=== PATIENT | female | born 1955 | race African-American/Black ===

== ENCOUNTER 2025-05-15 15:55 | Emergency (ER) | payer MEDICARE, BC ==
[~2025-05-15] VITALS: Ht 172.7 cm; Wt 87.0 kg
[2025-05-15 16:12] VITALS: TEMP 37
[2025-05-15] MEDS ORDERED: ACET-2708 MT (17:30)
[2025-05-15 18:01] VITALS: BP 135/82; PULSE 77; RESP 16; O2SAT 100
[2025-05-15] MEDS: ACETAMINOPHEN 325MG TABLET PO ONE (18:01)
== END 2025-05-15 18:02 | disposition home or self-care (01) ==
LOC: ER 15:55
DX: M79.672 Pain in left foot (principal); I10 Essential (primary) hypertension; Z98.890 Other specified postprocedural states
CPT/HCPCS: 73620; 99283